=== PATIENT | female | born 1985 | race Caucasian/White ===

== ENCOUNTER 2017-05-10 05:35 | Day surgery (SDC) | payer OTHER ==
[~2017-05-10] VITALS: Ht 162.6 cm; Wt 59.0 kg
[~2017-05-10 05:35] MED LIST: AMOX TR-K CLV1 EAC4; ANTIVERT25 MG PO; ASPIR-LOW81 MG PO; AVENTYL,PAMELOR25 MG PO; Aspirin E.C. PO; Brethine PO; Colace PO; ENDOCET 5-3251 EACH PO; FIORICET 50-301 EACH PO; FOLIC ACID1 MG PO; Feosol PO; GARAMYCIN5 ML; IBUPROFEN800 MG PO; Indocin PO; KEFLEX500 MG PO; LEXAPRO10 MG PO; LEXAPRO20 MG PO; LO-DOSE ASPIRIN81 M1 PO; MOTRIN400 MG PO; PRENATAL TABLE1 EAC3 PO; PROMETHAZINE HC25 M1 PO; PROMETHAZINE-D120 ML; Procardia PO; Prometrium; TOPAMAX100 MG PO; ULTRAM50 MG PO; XANAX0.25 MG PO; ZANAFLEX4 M1 PO; [UNRECOGNIZED DRUG - OTHER]
[2017-05-10 06:22] VITALS: BP 117/66
[2017-05-10] MEDS ORDERED: LORCET 5-325 M1 EACH PO (08:20)
[2017-05-10] MEDS ORDERED: MOTRIN800 MG PO (08:20)
[2017-05-10 09:17] VITALS: BP 107/69
[2017-05-10 10:02] VITALS: BP 129/64
== END 2017-05-10 10:05 | disposition home or self-care (01) ==
LOC: SDC 05:35
DX: D06.7 Carcinoma in situ of other parts of cervix (principal); N92.1 Excessive and frequent menstruation with irregular cycle; D68.51 Activated protein C resistance; Z79.82 Long term (current) use of aspirin
CPT/HCPCS: 88305; 88307; 88342 TC; J0690; J1100; J1170; J1885; J2250; J3010; Q0175

== ENCOUNTER 2017-07-26 12:49 | Emergency (ER) | payer OTHER ==
[~2017-07-26] VITALS: Ht 162.6 cm; Wt 55.7 kg
[~2017-07-26 12:49] MED LIST changes: +LORCET 5-325 M1 EACH PO; +MOTRIN800 MG PO
[2017-07-26 13:54] LABS: ADD MIUA? NO; BILIRUBIN NEGATIVE; BLOOD NEGATIVE; COLOR YELLOW ((YELLOW)); GLUCOSE (STRIP) NEGATIVE; KETONES NEGATIVE; LEUKOCYTES NEGATIVE; NITRITE NEGATIVE; PROTEIN (STRIP) NEGATIVE; SPECIFIC GRAVITY 1.009 (1.000-1.030); UCUL ADDED? NO; UROBILINOGEN 0.2 MG/DL (0.2-1.0)
[2017-07-26 14:01] LABS: HEMATOCRIT 37.9 % (36.0-46.0); MCH 25.6 PG (29.0-34.0); MCHC 32.2 G/DL (30.0-36.0); MCV 79.5 FL (83-99); RBC DIS.WIDTH-CV 14.3 % (11.8-14.6); RBC DIS.WIDTH-SD 41.6 % (39-53); RED BLOOD COUNT 4.77 M/uL (3.80-5.20); WHITE BLOOD COUNT 5.5 K/uL (4.1-10.2)
[2017-07-26 14:13] LABS: CHLORIDE 110 mEq/L (99-109); POTASSIUM 3.4 mEq/L (3.7-5.4); SODIUM 141 mEq/L (136-147)
[2017-07-26 14:14] LABS: GLUCOSE 95 mg/dL (70-99)
[2017-07-26 14:16] LABS: ANION GAP 11 MEQ/L (2-14)
[2017-07-26 14:18] LABS: GFR ESTIMATE (CALCULATED) > 59 mL/min/
[2017-07-26 14:19] LABS: UREA NITROGEN (BUN) 4 mg/dL (9-23)
[2017-07-26 14:28] LABS: QUANTITATIVE HCG < 4.0 MIU/ML
[2017-07-26 14:35] LABS: MEAN PLAT.VOLUME 12.3 uM^3 (9.5-12.4); PLAT.SUFFICIENCY ADEQUATE; PLATELET COUNT 220 K/uL (156-360)
[2017-07-26 16:36] LABS: TOTAL BILIRUBIN 0.4 mg/dL (0.0-1.0)
[2017-07-26 16:37] LABS: ALKALINE PHOSPHATASE 70 IU/L (3-129)
[2017-07-26 16:40] LABS: DIRECT BILIRUBIN 0.2 mg/dL (0.0-0.3)
[2017-07-26 16:41] LABS: LIPASE 32 U/L (1.0-51.0)
[2017-07-26 17:43] LABS: C DIFF TOXIN NEGATIVE (NEGATIVE); PROBE CHECK PASS; SPECIMEN PROCESSING CONTROL PASS
[2017-07-26 17:57] VITALS: BP 125/70
== END 2017-07-26 17:59 | disposition home or self-care (01) ==
LOC: EME 12:49
PROVIDERS: Physician Assistant
DX: K59.1 Functional diarrhea (principal); E87.6 Hypokalemia; J06.9 Acute upper respiratory infection, unspecified; F41.9 Anxiety disorder, unspecified; Z79.82 Long term (current) use of aspirin
CPT/HCPCS: 76705; 80048; 80076; 81003; 83690; 84702; 85027; 87177; 87493; 87506; 99281; 99284